=== PATIENT | female | born 1975 | race Caucasian/White ===

== ENCOUNTER 2020-06-04 12:34 | Emergency (ER) | payer OTHER, SELFPAY ==
[~2020-06-04] VITALS: Ht 162.6 cm; Wt 61.2 kg
[2020-06-04 13:07] VITALS: BP_SYST 112
--- NOTE | 2020-06-04 13:12 | NUR ---
TRIAGED IN TENT
[2020-06-04] MEDS ORDERED: ACETAMINOPHEN 500 MG TABLET PO ONE (14:45)
[2020-06-04 15:15] VITALS: BP_SYST 112
--- NOTE | 2020-06-04 15:15 | NUR ---
EXAMINED BY ALEIDA NUÑEZ Patient given written and verbal discharge instructions and verbalizes understanding. ER MD discussed with patient the results and treatment provided. Patient in stable condition. ID arm band removed. Rx of NONE given. Patient educated on pain management and to follow up with PMD. Pain Scale 0/10 Opportunity for questions provided and answered. Medication side effect fact sheet provided.
== END 2020-06-04 15:15 | disposition home or self-care (01) ==
LOC: SED 12:34
DX: U07.1 COVID-19 (principal); R51.9 Headache, unspecified
CPT/HCPCS: 99281

== ENCOUNTER 2022-11-17 13:07 | Emergency (ER) | payer OTHER ==
[~2022-11-17] VITALS: Ht 162.6 cm; Wt 74.8 kg
[2022-11-17 13:18] VITALS: BP_SYST 135
--- NOTE | 2022-11-17 13:20 | NUR ---
PT TRIAGED AND TAKEN TO BED 4, REPORT GIVEN TO SOPHIE BOURNE. PT BIB SIGNIFICANT OTHER S/P [facility] ONJ NOVEMBER 06, PT HAS C/O BLOOD CLOTS AT DRAIN SITE AND INCREASED ABDOMINAL PAIN AND DISTENSION.
--- NOTE | 2022-11-17 13:25 | NUR ---
DR. MITCHELL AT BEDSIDE TO ASSESS PT.
[2022-11-17 13:32] VITALS: BP_SYST 114
[2022-11-17 14:07] LABS: BASOPHILS % (AUTO) 0.3 % (0.0-2.0); EOSINOPHILS % (AUTO) 0.5 % (0.0-4.0); HEMOGLOBIN 8.1 g/dL (12.0-16.0); LYMPHOCYTES # (AUTO) 1.5 K/uL (1.0-5.5); MEAN CORPUSCULAR HEMOGLOBIN 30 pg (27-31); MEAN CORPUSCULAR HGB CONC 34 % (32-36); MEAN CORPUSCULAR VOLUME 87 fL (79.0-98.0); MONOCYTES # (AUTO) 0.5 K/uL (0.0-1.0); MONOCYTES % (AUTO) 5.4 % (1.7-9.3); NEUTROPHILS # (AUTO) 6.7 K/uL (1.8-7.7); NEUTROPHILS % (AUTO) 76.8 % (40.0-70.0); PLATELET COUNT (AUTO) 349 K/uL (130-430); RED BLOOD CELL COUNT(AUTO) 2.74 MIL/uL (4.2-6.2); RED CELL DISTRIBUTION WIDTH 14.6 % (9.0-15.0); WHITE BLOOD COUNT (AUTO) 8.8 K/uL (4.8-10.8)
[2022-11-17 14:19] LABS: ANION GAP 8 (5-15); CALCIUM 8.4 mg/dL (8.4-11.0); CHLORIDE 103 mmol/L (98-107); CREATININE 0.78 mg/dL (0.55-1.30); GFR AFRICAN AMERICAN 102 mL/min (>90); GLUCOSE 239 mg/dL (70-99); UREA NITROGEN, BLOOD 9 mg/dL (8-21)
[2022-11-17 14:23] LABS: ALANINE AMINOTRANSFERASE 70 U/L (12-78); ALBUMIN 2.7 g/dL (3.4-4.8); AMYLASE 65 U/L (0-100); ASPARTATE AMINOTRANSFERASE 46 U/L (10-37); C-REACTIVE PROTEIN QUANT 3.6 mg/dL (0-0.5); LACTATE DEHYDROGENASE 280 U/L (81-234); LIPASE 541 U/L (73-393); TOTAL BILIRUBIN 0.4 mg/dL (0.0-1.0)
[2022-11-17 14:28] LABS: INR 0.9 (0.8-1.2); PROTHROMBIN TIME 9.7 SECS (9.5-12.5)
[2022-11-17 14:56] LABS: ACETONE, SERUM NEGATIVE (NEGATIVE)
[2022-11-17 15:10] LABS: BILIRUBIN,URINE NEGATIVE (NEGATIVE); CLARITY/URINE CLEAR (CLEAR); COLOR,URINE YELLOW (YELLOW); GLUCOSE,URINE 2+ (NEGATIVE); KETONES,URINE NEGATIVE (NEGATIVE); LEUKOCYTE ESTERASE ,URINE NEGATIVE (NEGATIVE); NITRITE, URINE NEGATIVE (NEGATIVE); PROTEIN URINE NEGATIVE (NEGATIVE); UROBILINOGEN,URINE 0.2 (0.2-1.0)
[2022-11-17 15:17] LABS: BLOOD, URINE TRACE (NEGATIVE)
[2022-11-17 15:18] LABS: BACTERIA,URINE FEW /HPF (None Seen); MUCUS,URINE None Seen /LPF (None Seen); RBC,URINE NONE SEEN /HPF (0-3); WBC,URINE 0-3 /HPF (0-3)
[2022-11-17] MEDS ORDERED: IBUP-1969 PO (15:22)
[2022-11-17] MEDS ORDERED: TRAM50TA2 PO (15:22)
--- NOTE | 2022-11-17 16:35 | NUR ---
Patient given written and verbal discharge instructions and verbalizes understanding. ER MD discussed with patient the results and treatment provided. Patient in stable condition. ID arm band removed. IV catheter removed intact and dressing applied, no active bleeding. Patient educated on pain management and to follow up with PMD. Opportunity for questions provided and answered. Medication side effect fact sheet provided.
== END 2022-11-17 16:34 | disposition home or self-care (01) ==
LOC: SED 13:07
DX: R10.9 Unspecified abdominal pain (principal); Z79.899 Other long term (current) drug therapy
CPT/HCPCS: 36415; 76376; 80053; 81000; 82009; 82150; 83605; 83615; 83690; 84703; 85025; 85610-TC; 85730-TC; 86140; 99284

== ENCOUNTER 2023-10-12 17:42 | Emergency (ER) | payer OTHER ==
[~2023-10-12] VITALS: Ht 162.6 cm; Wt 59.0 kg
[~2023-10-12 17:42] MED LIST: IBUP-1969 PO; TRAM50TA2 PO
[2023-10-12 17:45] VITALS: BP_SYST 127; PULSE 109; RESP 18; TEMP 98.9; O2SAT 98
[2023-10-12 19:06] LABS: INFLUENZA TYPE A Negative (NEGATIVE); INFLUENZA TYPE B NEGATIVE (NEGATIVE)
[2023-10-12 19:08] LABS: STREPTOCOCCUS A SCREEN (RAPID) NEGATIVE (NEGATIVE)
[2023-10-12] MEDS ORDERED: AUG875 PO (20:02)
[2023-10-12] MEDS ORDERED: OFLO5DRO6 EACH EYE (20:02)
[2023-10-12] MEDS ORDERED: IBUP-1969 PO (20:02)
[2023-10-12 20:09] VITALS: PULSE 78; RESP 18; TEMP 98.1; O2SAT 98
== END 2023-10-12 20:12 | disposition home or self-care (01) ==
LOC: SED 17:42
DX: H66.92 Otitis media, unspecified, left ear (principal); H10.9 Unspecified conjunctivitis; Z20.822 Contact with and (suspected) exposure to COVID-19
CPT/HCPCS: 36415; 86403; 87081; 99283